=== PATIENT | female | born 2000 | race Two or more races ===

== ENCOUNTER 2021-07-08 10:20 | Emergency (ER) | payer OTHER ==
[2021-07-08] MEDS ORDERED: HYDROCODON-ACE1 EAC4 PO ×2 (13:44→14:16)
[2021-07-08] MEDS ORDERED: NAPROSYN500 MG PO ×2 (13:47→14:14)
== END 2021-07-08 14:23 | disposition home or self-care (01) ==
LOC: ER1 10:20
DX: S52.122A Displaced fracture of head of left radius, initial encounter for closed fracture (principal); S52.132A Displaced fracture of neck of left radius, initial encounter for closed fracture; S16.1XXA Strain of muscle, fascia and tendon at neck level, initial encounter; S00.81XA Abrasion of other part of head, initial encounter; W11.XXXA Fall on and from ladder, initial encounter; Y92.89 Other specified places as the place of occurrence of the external cause; Y99.0 Civilian activity done for income or pay
CPT/HCPCS: 29105; 70450; 72125; 73080; 73090; 73130; 73200; 84703; 99284